=== PATIENT | male | born 1945 | race Caucasian/White ===

== ENCOUNTER → 2023-07-10 07:29 | Outpatient (REF) | payer MEDICARE, OTHER, SELFPAY ==
[2023-07-10 09:19] LABS: Glycohemoglobin (HgbA1c) 7.2 % (4.0-5.6)
[2023-07-10 09:23] LABS: Microalbumin, Random Urine < 0.6 mg/dl (0.6-1.7)
[2023-07-10 09:31] LABS: ALT (SGPT) 27 U/L (0-50); AST (SGOT) 29 U/L (17-59); Albumin 4.4 g/dl (3.5-5.0); Alkaline Phosphatase 43 U/L (38-126); Blood Urea Nitrogen 26 mg/dl (9-20); Calcium 9.5 mg/dl (8.4-10.2); Carbon Dioxide 28 mmol/L (22-30); Chloride 100 mmol/L (98-107); Glucose 143 mg/dl (70-99); HDL Cholesterol 45 mg/dl; LDL Cholesterol, Calculated 62 mg/dl; Potassium 4.3 mmol/L (3.5-5.1); Sodium 138 mmol/L (135-145); Total Cholesterol 136 mg/dl (50-199); Total Protein 7.1 g/dl (6.3-8.2); Triglyceride 148 mg/dl (10-149); Very Low Density Lipoprotein 29 mg/dl (0-30); eGFR > 60.00
== END ==
LOC: REG 07:29
PROVIDERS: ATTENDING PHYSICIAN Internal Medicine
DX: E11.9 Type 2 diabetes mellitus without complications (principal); E78.2 Mixed hyperlipidemia
CPT/HCPCS: 36415; 80053; 80061; 82043; 83036

== ENCOUNTER 2023-10-27 07:07 | Day surgery (SDC) | payer MEDICARE, OTHER, SELFPAY ==
[2023-10-27 08:01] VITALS: BMI 28.5
[2023-10-27 08:07] LABS: Glucose - Point of Care 157 mg/dl (70-99)
--- NOTE | 2023-10-27 08:29 | W.PN.UPDATE ---
Update Note
Progress Note Update
Neymar presented for cardioversion and he was paced out of the atrial flutter. He did not require sedation and cardioversion.
Remains atrial paced.
Discussed with his via phone
Follow up as scheduled.
== END 2023-10-27 08:56 | disposition home or self-care (01) ==
LOC: CATH 07:07
PROVIDERS: ATTENDING PHYSICIAN Nuclear Medicine Nuclear Cardiology; FAMILY PHYSICIAN Internal Medicine; OTHER PHYSICIAN Internal Medicine Cardiovascular Disease
DX: I48.92 Unspecified atrial flutter (principal); Z53.09 Procedure and treatment not carried out because of other contraindication; I48.0 Paroxysmal atrial fibrillation; I10 Essential (primary) hypertension; E78.00 Pure hypercholesterolemia, unspecified; I42.9 Cardiomyopathy, unspecified; E11.9 Type 2 diabetes mellitus without complications; Z95.2 Presence of prosthetic heart valve; Z95.810 Presence of automatic (implantable) cardiac defibrillator; Z87.891 Personal history of nicotine dependence; Z79.01 Long term (current) use of anticoagulants; Z79.84 Long term (current) use of oral hypoglycemic drugs
CPT/HCPCS: 82962; 92960; 93005

== ENCOUNTER → 2024-01-22 08:17 | Outpatient (REF) | payer MEDICARE, OTHER, SELFPAY ==
[2024-01-22 09:20] LABS: Microalbumin, Random Urine 0.6 mg/dl (0.6-1.7)
[2024-01-22 09:29] LABS: ALT (SGPT) 27 U/L (0-50); AST (SGOT) 30 U/L (17-59); Albumin 4.6 g/dl (3.5-5.0); Alkaline Phosphatase 40 U/L (38-126); Blood Urea Nitrogen 21 mg/dl (9-20); Calcium 9.7 mg/dl (8.4-10.2); Carbon Dioxide 28 mmol/L (22-30); Chloride 99 mmol/L (98-107); Glucose 141 mg/dl (70-99); HDL Cholesterol 41 mg/dl; LDL Cholesterol, Calculated 60 mg/dl; Potassium 4.3 mmol/L (3.5-5.1); Sodium 141 mmol/L (135-145); Total Bilirubin 1.1 mg/dl (0.2-1.3); Total Cholesterol 133 mg/dl (50-199); Total Protein 7.2 g/dl (6.3-8.2); Triglyceride 163 mg/dl (10-149); Very Low Density Lipoprotein 32 mg/dl (0-30); eGFR > 60.00
[2024-01-22 09:42] LABS: Glycohemoglobin (HgbA1c) 6.8 % (4.0-5.6)
== END ==
LOC: REG 08:17
PROVIDERS: ATTENDING PHYSICIAN Internal Medicine
DX: E11.9 Type 2 diabetes mellitus without complications (principal); E78.2 Mixed hyperlipidemia
CPT/HCPCS: 36415; 80053; 80061; 82043; 83036

== ENCOUNTER → 2024-07-18 07:44 | Outpatient (REF) | payer MEDICARE, OTHER, SELFPAY ==
[2024-07-18 08:47] LABS: % Basophils 0.7 % (0-2); % Eosinophils 2.6 % (0-6); % Immature Granulocytes 0.5 % (0-0.5); % Lymphocytes 27.1 % (20.5-51.1); % Monocytes 11.4 % (1.7-9.3); % Neutrophils 57.7 % (42.2-75.2); Absolute Eosinophils 0.1 10^3/uL (0-0.7); Absolute Lymphocytes 1.1 10^3/uL (1.2-3.4); Absolute Monocytes 0.5 10^3/uL (0.1-0.6); Absolute Neutrophils 2.4 10^3/uL (1.4-6.5); Hemoglobin 16.3 g/dL (13.0-18.0); Mean Corp Hgb Conc. 33.3 g/dL (33.0-37.0); Mean Corpuscular Hgb 29.2 pg (27.0-31.0); Mean Corpuscular Volume 87.8 fL (80.0-94.0); Mean Platelet Volume 8.4 fL (7.4-10.4); Nucleated Red Blood Cells % 0 % (-); Platelet Count 172 10^3/uL (130-400); Red Blood Cell Count 5.58 10^6/uL (4.70-6.10); Red Cell Dist. Width 13.2 % (11.5-14.5); White Blood Cell Count 4.2 10^3/uL (4.8-10.8)
[2024-07-18 09:05] LABS: Microalbumin, Random Urine 1.1 mg/dl (0.6-1.7); Microalbumin/creatinine Ratio 9.7 mg/g
[2024-07-18 09:36] LABS: Glycohemoglobin (HgbA1c) 7.3 % (4.0-5.6)
[2024-07-18 12:45] LABS: ALT (SGPT) 39 U/L (0-50); AST (SGOT) 30 U/L (17-59); Albumin 4.6 g/dl (3.5-5.0); Alkaline Phosphatase 44 U/L (38-126); Blood Urea Nitrogen 20 mg/dl (9-20); Calcium 9.7 mg/dl (8.4-10.2); Carbon Dioxide 30 mmol/L (22-30); Chloride 104 mmol/L (98-107); Glucose 168 mg/dl (70-99); HDL Cholesterol 34 mg/dl; LDL Cholesterol, Calculated 48 mg/dl; Potassium 4.5 mmol/L (3.5-5.1); Sodium 143 mmol/L (135-145); Total Bilirubin 1.1 mg/dl (0.2-1.3); Total Cholesterol 120 mg/dl (50-199); Triglyceride 193 mg/dl (10-149); Very Low Density Lipoprotein 38 mg/dl (0-30); eGFR > 60.00
[2024-07-19 06:36] LABS: PSA Total 15.7 ng/mL (0.0-4.0)
== END ==
LOC: REG 07:44
PROVIDERS: ATTENDING PHYSICIAN Surgery; FAMILY PHYSICIAN Internal Medicine
DX: R97.20 Elevated prostate specific antigen [PSA] (principal); E11.9 Type 2 diabetes mellitus without complications; Z95.2 Presence of prosthetic heart valve
CPT/HCPCS: 36415; 80053; 80061; 82043; 82570; 83036; 84153; 84154; 85025

== ENCOUNTER → 2024-09-01 10:09 | Outpatient (REF) | payer MEDICARE, OTHER, SELFPAY | LOC: REG 10:09 | PROVIDERS: ATTENDING PHYSICIAN Surgery; FAMILY PHYSICIAN Internal Medicine | DX: R97.20 Elevated prostate specific antigen [PSA] (principal) | CPT/HCPCS: 36415; 84153; 84154 ==

== ENCOUNTER → 2025-02-02 07:53 | Outpatient (REF) | payer MEDICARE, OTHER, SELFPAY ==
[2025-02-02 09:05] LABS: Hematocrit 44.1 % (39.0-52.0); Hemoglobin 14.8 g/dL (13.0-18.0); Mean Corp Hgb Conc. 33.6 g/dL (33.0-37.0); Mean Corpuscular Volume 89.8 fL (80.0-94.0); Nucleated Red Blood Cells % 0 % (-); Platelet Count 120 10^3/uL (130-400); Red Cell Dist. Width 13.3 % (11.5-14.5)
[2025-02-02 09:47] LABS: ALT (SGPT) 27 U/L (0-50); AST (SGOT) 27 U/L (17-59); Albumin 4.7 g/dl (3.5-5.0); Alkaline Phosphatase 34 U/L (38-126); Blood Urea Nitrogen 26 mg/dl (9-20); Calcium 9.3 mg/dl (8.4-10.2); Carbon Dioxide 29 mmol/L (22-30); Chloride 104 mmol/L (98-107); Glucose 173 mg/dl (70-99); HDL Cholesterol 44 mg/dl; LDL Cholesterol, Calculated 60 mg/dl; Potassium 4.4 mmol/L (3.5-5.1); Sodium 139 mmol/L (135-145); Total Protein 7.2 g/dl (6.3-8.2); Very Low Density Lipoprotein 34 mg/dl (0-30); eGFR > 60.00
[2025-02-02 10:46] LABS: Glycohemoglobin (HgbA1c) 7.1 % (4.0-5.6)
[2025-02-02 10:57] LABS: Microalb - Urine Creatinine 118.200 mg/dl
[2025-02-02 11:02] LABS: Microalbumin, Random Urine 2.4 mg/dl (0.6-1.7)
== END ==
LOC: REG 07:53
PROVIDERS: ATTENDING PHYSICIAN Internal Medicine
DX: E11.9 Type 2 diabetes mellitus without complications (principal); Z95.2 Presence of prosthetic heart valve; E78.2 Mixed hyperlipidemia
CPT/HCPCS: 36415; 80053; 80061; 82043; 82570; 83036; 85025

== ENCOUNTER → 2025-03-11 08:58 | Outpatient (REF) | payer MEDICARE, OTHER, SELFPAY | LOC: RCS 08:58 | PROVIDERS: ATTENDING PHYSICIAN Internal Medicine Cardiovascular Disease; FAMILY PHYSICIAN Internal Medicine | DX: I48.0 Paroxysmal atrial fibrillation (principal) | CPT/HCPCS: 93306 ==

== ENCOUNTER 2025-03-26 11:33 | Emergency (ER) | payer MEDICARE, OTHER, SELFPAY ==
[2025-03-26 11:46] VITALS: BP 118/72
--- NOTE | 2025-03-26 13:21 | ED.GENMED ---
History of Present Illness
General
Chief Complaint: Overdose Unintentional
Source: patient
Exam Limitations: none
Time Seen by Provider: 03/26/25 13:15
History of Present Illness
History of Present Illness:
See MDM
Past History
Past History
ED Past Medical History: Arrthythmia and Hypercholesterolemia; Negative CAD
ED Past Surgical History: Cardiac (Aortic valve repair)
Social History
Tobacco: Former smoker
Alcohol: Occasional
Drug: None
Personal:
Living: with family
Phy Exam
Physical Exam
Physical Exam:
See MDM
Course
Orders/Labs/Results
Orders:
Orders
03/26/25 11:48
EKG [Electrocardiogram (*1)] Urgent
Reason for Study: Other
Other Reason for Exam: overdose of eliquis and sotalol
EKG- Treatment ONCE
Vital Signs
Initial and Last Documented VS:
Initial Vital Signs
Temp Pulse Resp BP Pulse Ox
97.2 F 66 18 118/72 99
03/26/25 11:46 03/26/25 11:46 03/26/25 11:46 03/26/25 11:46 03/26/25 11:46
Last Documented Vital Signs
Temp Pulse Resp BP Pulse Ox
97.2 F 66 18 118/72 99
03/26/25 11:46 03/26/25 11:46 03/26/25 11:46 03/26/25 11:46 03/26/25 13:24
MDM/Problems Addressed
Differential Diagnosis Includes:
Note:
CHIEF COMPLAINT(S)
Overdose of medication.
HISTORY OF PRESENT ILLNESS
The patient is a 79-year-old male who reported accidentally taking an extra dose of his prescribed Sotalol. He explained that while refilling his weekly pill container, he inadvertently took an additional Sotalol tablet that he had already set
aside for that day. The patient reports taking the initial dose at 9:00 AM. He did not report any symptoms or adverse effects at the time of the visit. The patient contacted his pastrycook group after the incident. He was sent to the ED for an
EKG. Pt took 160 mg of sotalol and 10 mg of eliquis. He denies any intention to harm himself.
MANAGEMENT OF THE PATIENTS CARE WAS DISCUSSED WITH
Case discussed with cardiology
PHYSICAL EXAM
General: Alert, no acute distress.
Skin: Warm, dry.
Head: Normocephalic, atraumatic
Neck: Appears supple, trachea midline.
Eyes, Ears, Nose, Mouth, and Throat: Moist mucous membranes
Cardiovascular: No signs of cyanosis. Regular rate and rhythm
Respiratory: Respirations are non-labored.
Abdomen: Non-distended
Musculoskeletal: No deformities
Neurological: No focal neurological deficit observed.
Psychiatric: Cooperative, appropriate mood and affect.
MEDICATION RECONCILIATION
The patient confirmed taking Sotalol at an increased dose inadvertently. No mention of any specific treatments or corrections made at the time of the visit.
DIFFERENTIAL DIAGNOSIS
The Differential Diagnosis includes, in no particular order and is not limited to:
- Medication overdose
- Cardiovascular side effects from Sotalol overdose
- Psychological factors (intent to self-harm ruled out)
MEDICAL DECISION MAKING
- Number and Complexity of Problems Addressed: Chronic conditions affecting care include potential Sotalol overdose.
- Data:
Category 1:
- The situation was communicated with Dr. Barclay, the pastrycook.
Category 3:
- Discussion of management with Dr. Barclay, the pastrycook.
- Risk: The patient was monitored for potential cardiovascular effects due to Sotalol overdose. Prescription drug management directly applies to the situation.
The provided evaluation includes communication with the patients pastrycook to manage the potential side effects of the medication overdose, ensure no adverse events are observed, and that there is no intent of self-harm.
EKG
My independent EKG interpretation is:
- Rhythm: Not specified
- Heart Rate: 5 beats per minute
- Fascicular Block noted
- No ST Elevation noted
- No Ectopy
SUMMARY OF ENCOUNTER
The patient, a 79-year-old male, presented to the emergency department after accidentally taking an extra dose of Sotalol, totaling 160 mg. He felt well and was primarily seeking precautionary evaluation. Cardiology recommended obtaining an EKG. The
patients EKG appeared unchanged, and cardiology was informed. The patient felt comfortable foregoing blood work and planned to follow up with cardiology.
MANAGEMENT OF THE PATIENTS CARE WAS DISCUSSED WITH
Cardiology was informed about the patients presentation and the EKG findings.
INDEPENDENT REVIEW OF LABS AND INTERPRETATION OF TESTS
My independent EKG interpretation shows no changes compared to previous EKGs.
PATIENT EDUCATION AND COUNSELING
The patient was advised to contact his cardiology office for potential further evaluation including blood work within the week.
FOLLOW-UP INSTRUCTIONS
Please call the cardiology office tomorrow to schedule further evaluation, including possible blood work.
MEDICATION RECONCILIATION
The patient reported taking an unintentional excess dose of Sotalol, totaling 160 mg (two doses of 80 mg).
MEDICAL DECISION MAKING
1. Number and Complexity of Problems Addressed: Chronic conditions affecting care include potential Sotalol overdose.
2. Data:
- Category 1: My independent review of the EKG shows no changes.
- Category 3: Discussion of management with cardiology was conducted.
3. Risk: Prescription drug management directly applies due to the Sotalol overdose.
DIAGNOSIS
Accidental overdose
*Pulse Oximetry
SaO2: 99
Oxygen Mode of Delivery: Room air
Patient hypoxic: no
*Critical Care Note
Total Time (30-74mins, 75-104mins- exclusive of procedures): Not Applicable
ED Attending Note
-
Portions of this chart may have been created with voice recognition software.� Occasional wrong word or��sound alike� substitutions may have occurred due to the inherent limitations of voice recognition software.
Discharge Plan
Departure
Patient Disposition: Home (Routine Discharge)
Date of Disposition: 03/26/25
Time of Disposition: 13:28
Patient with high blood pressure during this ER visit?: No
Discharge Problem:
Accidental overdose
Instructions: Accidental Overdose (DC)
Prescriptions:
No Action
sotalol 80 MG tablet
80 mg PO BID
rosuvastatin 40 mg Tablet
40 mg PO QPM
tadalafil 5 mg Tablet
5 mg PO DAILY PRN (Reason: erectile dysfunction)
Eliquis 5 mg Tablet
5 mg PO BID
metformin 500 mg Tablet
500 mg PO BID
metoprolol succinate 25 mg Tablet Extended Release 24 Hr
25 mg PO QPM
Metamucil 3.4 gram/5.4 gram Powder
3 tbsp PO DAILY
Activity Restrictions/Additional Instructions:
Please return for any worsening symptoms.
You may return at any time if you have further concerns.
Please follow up with your doctor at the first available appointment, preferably this week.
The pastrycook recommended that you call the office tomorrow.
Thank you for choosing [facility].
Interventions
Interventions:
*Risk Screen - Suicide Last Done: 03/26/25 11:46
*General Assessment Last Done: 03/26/25 11:46
*ED COVID-19 Vaccine History Last Done: 03/26/25 11:46
*ED Influenza Vaccine History Last Done: 03/26/25 11:46
Discharge Date and Time
Print Language: [id number]
[2025-03-26 13:34] VITALS: BP 121/68
== END 2025-03-26 13:44 | disposition home or self-care (01) ==
LOC: EMR 11:33
PROVIDERS: EMERGENCY PHYSICIAN Student in an Organized Health Care Education/Training Program; FAMILY PHYSICIAN Internal Medicine
DX: T50.901A Poisoning by unspecified drugs, medicaments and biological substances, accidental (unintentional), initial encounter (principal); Y92.9 Unspecified place or not applicable; E78.00 Pure hypercholesterolemia, unspecified; Z87.891 Personal history of nicotine dependence; Z95.0 Presence of cardiac pacemaker
CPT/HCPCS: 99283; 93005